=== PATIENT | male | born 1990 | race African-American/Black ===

== ENCOUNTER 2018-04-25 12:20 | Day surgery (SDC) | payer BC ==
[~2018-04-25] VITALS: Ht 180.3 cm; Wt 92.9 kg
[2018-04-25] VITALS (7 sets, daily range): BP systolic 94–114; BP diastolic 54–84; PULSE 70–150; TEMP 98.1
[2018-04-25 13:00] LABS: POTASSIUM 4.5 mmol/L (3.4-5.0)
[2018-04-25 13:27] LABS: INR 1.5 (0.8-3.0); PROTHROMBIN TIME 16.6 SECONDS (9.7-12.8)
[2018-04-25] MEDS ORDERED: ELIQUIS 5MG PO (13:30)
[2018-04-25 13:35] LABS: THYROID STIMULATING HORMONE 0.962 uIU/mL (0.465-4.680)
[2018-04-25] MEDS ORDERED: PRINIVIL5 MG PO (15:31)
== END 2018-04-25 16:50 | disposition home or self-care (01) ==
LOC: COL.CAR 12:20
PROVIDERS: Internal Medicine Interventional Cardiology
DX: I48.92 Unspecified atrial flutter (principal); I48.91 Unspecified atrial fibrillation; I42.9 Cardiomyopathy, unspecified; R55 Syncope and collapse; Z83.3 Family history of diabetes mellitus
CPT/HCPCS: J2250; J3010; J7030

== ENCOUNTER → 2019-02-18 | Outpatient (CLI) | payer BC ==
[~2019-02-18] MED LIST: ELIQUIS 5MG PO; PRINIVIL5 MG PO
[2019-02-18 19:29] LABS: HIV 1/2 Antibodies Non-Reactive; HIV-1p24 Antigen Non-Reactive
[2019-02-19 14:55] LABS: HEPATITIS B SURFACE ANTIGEN Negative (Negative); HEPATITIS C VIRUS ANTIBODY Negative (Negative)
== END ==
LOC: ZCOL.LAB 17:05
PROVIDERS: Family Medicine
DX: Z11.3 Encounter for screening for infections with a predominantly sexual mode of transmission (principal)